=== PATIENT | male | born 1965 | race Asian ===

== ENCOUNTER 2018-08-11 02:13 | Emergency (ER) | payer OTHER ==
[~2018-08-11] VITALS: Ht 177.8 cm; Wt 84.1 kg
[2018-08-11] MEDS ORDERED: BENZ-51 PO (02:31)
[2018-08-11] MEDS ORDERED: DOXY25SU3 PO (02:31)
[2018-08-11] MEDS ORDERED: RANI150T7 PO (02:33)
[2018-08-11 03:53] LABS: APPEARANCE,URINE CLEAR (CLEAR); BILIRUBIN,URINE NEGATIVE (NEGATIVE); GLUCOSE, URINE (UA) NEGATIVE (NEGATIVE); KETONES,URINE NEGATIVE (NEGATIVE); LEUKOCYTE ESTERASE ,URINE NEGATIVE (NEGATIVE); NITRATE,URINE NEGATIVE (NEGATIVE); OCCULT BLOOD,URINE NEGATIVE (NEGATIVE); PROTEIN,URINE NEGATIVE (NEGATIVE)
[2018-08-11 05:10] LABS: ANION GAP 6 mmol/L (8-16); CALCIUM, TOTAL 8.5 mg/dL (8.8-10.5); CARBON DIOXIDE 29 mmol/L (22-29); CHLORIDE 105 mmol/L (98-107); CREATININE 1.19 mg/dL (0.60-1.30); GLOMERULAR FILTR. RATE CALC > 60 mL/min (>60); GLUCOSE,RANDOM 103 mg/dL (70-110); SODIUM SERUM 140 mmol/L (136-145); UREA NITROGEN, BLOOD 16 mg/dL (7-18)
[2018-08-11 05:11] LABS: BASOPHILS % (AUTO) 1.2 % (0.0-2.0); HEMATOCRIT 45.9 % (41-53); HEMOGLOBIN 15.4 g/dL (13.5-17.5); LYMPHOCYTES # (AUTO) 1.9 K/uL (1.0-4.8); LYMPHOCYTES % (AUTO) 34.7 % (22.0-44.0); MEAN CORPUSCULAR HEMOGLOBIN 29.7 pg (26.0-34.0); MEAN CORPUSCULAR HGB CONC 33.5 G/dL (31.0-37.0); MEAN CORPUSCULAR VOLUME 89 fL (80-100); MONOCYTES # (AUTO) 0.4 K/uL (0.1-1.0); MONOCYTES % (AUTO) 8.1 % (2.0-9.0); NEUTROPHILS # (AUTO) 2.9 K/uL (1.8-7.7); PLATELET COUNT (AUTO) 168 K/uL (150-450); RED BLOOD CELL COUNT(AUTO) 5.19 MIL/uL (4.50-5.90)
[2018-08-11 05:22] LABS: B-TYPE NATRIURETIC PEPTIDE 1110 pg/mL (0-100)
[2018-08-11] MEDS ORDERED: FUROSEMIDE 40 MG/4 ML VIAL IVP ONE (05:30)
[2018-08-11 05:37] LABS: ALANINE AMINOTRANSFERASE 61 U/L (12-78); ALBUMIN 3.2 g/dL (3.4-5.0); ALKALINE PHOSPHATASE 77 U/L (46-116); ASPARTATE AMINOTRANSFERASE 50 U/L (15-37); BILIRUBIN,TOTAL 0.4 mg/dL (0.1-1.0); CREATINE KINASE, TOTAL ONLY 154 U/L (39-308); TOTAL PROTEIN, SERUM 6.6 g/dL (6.4-8.2)
[2018-08-11 06:31] VITALS: BP 157/83
== END 2018-08-11 06:46 | disposition home or self-care (01) ==
LOC: EMS 02:13
DX: I11.0 Hypertensive heart disease with heart failure (principal); I50.9 Heart failure, unspecified
CPT/HCPCS: 36415; 71046; 80053; 81003; 82550; 83880; 84484; 85025; 93005; 96374; 99285; J1940

== ENCOUNTER 2023-04-07 18:54 | Emergency (ER) | payer OTHER ==
[~2023-04-07] VITALS: Ht 172.7 cm; Wt 81.8 kg
[~2023-04-07 18:54] MED LIST: BENZ-227 PO; CARV12 PO; FURO40 PO; LOSA25TA41 PO; RANI150T7 PO; SPIR-37 PO
[2023-04-07 19:04] LABS: COVID AG,FIA SOURCE NASAL SWAB
[2023-04-07 19:33] LABS: SARS-COV2 (COVID) ANTIGEN,FIA Negative (Negative)
[2023-04-07 19:34] LABS: INFLUENZA TYPE A NEGATIVE FOR TYPE A (NEGATIVE); INFLUENZA TYPE B NEGATIVE FOR TYPE B (NEGATIVE)
[2023-04-07] MEDS ORDERED: BENZ-227 PO (23:56)
[2023-04-07] MEDS ORDERED: AZIT-103 PO (23:56)
[2023-04-08] MEDS ORDERED: ACETAMINOPHEN 500 MG TABLET PO ONE
[2023-04-08] MEDS ORDERED: BENZONATATE 100 MG CAPSULE PO ONE
[2023-04-08] MEDS ORDERED: AZITHROMYCIN 500 MG TABLET PO ONE
[2023-04-08] MEDS ORDERED: AZIT-103 PO (00:05)
[2023-04-08] MEDS ORDERED: BENZ-227 PO (00:05)
[2023-04-08 00:11] VITALS: BP 124/64; PULSE 82; RESP 18; TEMP 98.2
== END 2023-04-08 00:12 | disposition home or self-care (01) ==
LOC: EMS 18:55
DX: J40 Bronchitis, not specified as acute or chronic (principal); R05.9 Cough, unspecified; I11.0 Hypertensive heart disease with heart failure; I50.9 Heart failure, unspecified; I25.10 Atherosclerotic heart disease of native coronary artery without angina pectoris; Z20.822 Contact with and (suspected) exposure to COVID-19
CPT/HCPCS: 99284; 71046; 87426; 87430; 87804; Q9967